=== PATIENT | female | born 1955 | race Caucasian/White ===

== ENCOUNTER 2021-04-15 16:08 | Outpatient (CLI) | payer MEDICARE | END 2021-04-15 16:09 | disposition home or self-care (01) | LOC: BICRAD 16:08 | DX: R05.9 Cough, unspecified (principal) | CPT/HCPCS: 71046 ==

== ENCOUNTER 2021-11-11 10:11 | Outpatient (CLI) | payer MEDICARE | END 2021-11-11 10:12 | disposition home or self-care (01) | LOC: BICMAMMO 10:11 | PROVIDERS: ATTEND Family Medicine | DX: Z12.31 Encounter for screening mammogram for malignant neoplasm of breast (principal); Z98.82 Breast implant status | CPT/HCPCS: 77063; 77067 ==

== ENCOUNTER 2022-12-15 10:57 | Outpatient (CLI) | payer MEDICARE | END 2022-12-15 10:58 | disposition home or self-care (01) | LOC: BICMAMMO 10:57 | PROVIDERS: ATTEND Family Medicine | DX: Z12.31 Encounter for screening mammogram for malignant neoplasm of breast (principal); Z98.82 Breast implant status | CPT/HCPCS: 77063; 77067 ==

== ENCOUNTER 2022-12-21 08:25 | Outpatient (CLI) | payer MEDICARE | END 2022-12-21 08:26 | disposition home or self-care (01) | LOC: BICMAMMO 08:25 | PROVIDERS: ATTEND Family Medicine | DX: N64.89 Other specified disorders of breast (principal); N63.25 Unspecified lump in the left breast, overlapping quadrants | CPT/HCPCS: 76642; 77065; G0279 ==

== ENCOUNTER → 2022-12-27 | Day surgery (SDC) | payer MEDICARE | LOC: BICULT 12:28 | PROVIDERS: ATTEND Family Medicine | DX: R92.8 Other abnormal and inconclusive findings on diagnostic imaging of breast (principal) | CPT/HCPCS: 19083; 88305 ==

== ENCOUNTER → 2023-01-05 | Day surgery (SDC) | payer MEDICARE | LOC: MAMMO 06:58 | PROVIDERS: ATTEND Family Medicine | DX: C50.812 Malignant neoplasm of overlapping sites of left female breast (principal); Z17.0 Estrogen receptor positive status [ER+]; Z88.0 Allergy status to penicillin | CPT/HCPCS: 19081; 76098; A4648; 88305; 88342 ==

== ENCOUNTER 2023-02-01 06:40 | Day surgery (SDC) | payer MEDICARE ==
[2023-01-30 08:41] VITALS: BMI 23.7
[2023-02-01] MEDS ORDERED: EPINEPHrine 1 MG/ML AMP ONE (10:24)
[2023-02-01] MEDS ORDERED: Bupivacaine 0.25% HCL 30 ML VIAL ONE (10:24)
[2023-02-01] MEDS ORDERED: Methylene Blue 50 MG/10 ML AMPUL ONE (10:24)
[2023-02-01] MEDS ORDERED: Midazolam HCl 2 mg/2 ml Vial ONE ×2 (11:59→12:01)
[2023-02-01] MEDS ORDERED: fentaNYL 50 mcg/mL 1 mL Vial ONE ×3 (12:01→14:15)
[2023-02-01] MEDS ORDERED: Lidocaine 2% 6 ML (Jelly) SYR ONE (12:03)
[2023-02-01] MEDS ORDERED: CEFAZOLIN 2 GM VIAL ONE (12:08)
[2023-02-01] MEDS ORDERED: Sodium Chloride 0.9% 0 ML ONE (12:08)
[2023-02-01] MEDS ORDERED: LevoFLOXacin 500 mg/D5W 100 ML BAG ONE (12:12)
[2023-02-01] MEDS ORDERED: fentaNYL PF 100 MCG/2 ML SYRINGE ONE (12:21)
[2023-02-01] MEDS ORDERED: Dexamethasone 20 MG/5 ML VIAL ONE (12:27)
[2023-02-01] MEDS ORDERED: Ondansetron PF 4 MG/2 ML Vial ONE (12:27)
[2023-02-01] MEDS ORDERED: PROPOFOL 200 MG/20 ML VIAL ONE (12:27)
[2023-02-01] MEDS ORDERED: Lidocaine 1% PF 5 ML VIAL ONE (12:27)
[2023-02-01] MEDS ORDERED: HYDROcodone/Acetaminophen 5/325 mg Tablet ONE (15:09)
== END 2023-02-01 15:40 | disposition home or self-care (01) ==
LOC: SDC 06:40
PROVIDERS: ATTEND Surgery
PROC: 0HTU0ZZ Resection of Left Breast, Open Approach (ICD-10-PCS; principal; 2023-02-01)
PROC: 0HB5XZX Excision of Chest Skin, External Approach, Diagnostic (ICD-10-PCS; 2023-02-01)
DX: C50.812 Malignant neoplasm of overlapping sites of left female breast (principal); F41.9 Anxiety disorder, unspecified; F17.210 Nicotine dependence, cigarettes, uncomplicated; Z88.0 Allergy status to penicillin; Z79.899 Other long term (current) drug therapy
CPT/HCPCS: 19281; 19301; 19328; 38525; 76098; 78195; A9541; J3010; Q9968; 88307; 88342; A4648; J0171; J1100; J1956; J2250; J2405; J2704; J3490; S0020

== ENCOUNTER 2023-11-03 09:43 | Outpatient (CLI) | payer MEDICARE | END 2023-11-03 09:44 | disposition home or self-care (01) | LOC: BICMAMMO 09:43 | PROVIDERS: ATTEND Internal Medicine Hematology & Oncology | DX: Z13.820 Encounter for screening for osteoporosis (principal); C50.812 Malignant neoplasm of overlapping sites of left female breast; M81.0 Age-related osteoporosis without current pathological fracture; Z78.0 Asymptomatic menopausal state | CPT/HCPCS: 77080 ==

== ENCOUNTER 2023-12-19 13:26 | Outpatient (CLI) | payer MEDICARE | END 2023-12-19 13:27 | disposition home or self-care (01) | LOC: BICMAMMO 13:26 | PROVIDERS: ATTEND Surgery | DX: Z08 Encounter for follow-up examination after completed treatment for malignant neoplasm (principal); Z85.3 Personal history of malignant neoplasm of breast | CPT/HCPCS: 77066; G0279 ==